=== PATIENT | female | born 1975 ===

== ENCOUNTER 2020-09-15 08:07 | Outpatient (REF) | payer OTHER, SELFPAY ==
--- NOTE | ~2020-09-15 | MM_ITS ---
EXAMINATION: MM SCREENING DIGITAL BREAST TOMOSYNTHESIS, BILATERAL CLINICAL INFORMATION: Screening. Asymptomatic. Personal history left ADH 2016 status post excision 05/24/2016. The lifetime risk of breast cancer based on the Tyrer-Cuzick Model is 35%. COMPARISON: Mammography: 03/14/2019, 01/16/2018, 12/28/2016, 05/24/2016, 05/03/2016, 04/11/2016, 03/26/2015 TECHNIQUE: Digital breast tomosynthesis is performed in both the craniocaudal and mediolateral oblique views along with computer-aided detection (CAD). Synthesized 2D images are generated from the tomosynthesis. FINDINGS: There are scattered areas of fibroglandular density (ACR BI-RADS breast composition Category b). The right breast is unremarkable. There is no interval mass or architectural abnormality. Oval asymmetry posterior central breast on CC view is stable from prior studies. Neither breast shows abnormal calcifications. The bilateral axilla are stable. The skin contours are smooth. Left MLO tomography suggests nodular asymmetric density 0.7 x 0.6 cm mid upper quadrant 6 cm from nipple. There is questionable correlate on CC projection just lateral to midline mid depth. This could represent a cyst. Patient will be recalled to further characterize. MM/MM tomosynthesis screening BI IMPRESSION: 1. Left: Nodular asymmetric density mid upper left breast on tomography under 1 cm. 2. Right: No mammographic evidence of malignancy. ASSESSMENT: BI-RADS 0: Incomplete - Need Additional Imaging Evaluation RECOMMENDATION: 1. Additional views of the left breast (3-D spot MLO, 3-D spot CC). 2. Targeted ultrasound if warranted after review of the additional views. 3. Radiology department staff will contact the patient for additional imaging. 4. The lifetime risk of breast cancer based on the Tyrer-Cuzick Model is 35%. Additional annual adjunct screening with breast MRI may be of benefit in women with a risk score of 20% or greater. This patient's information was entered into a reminder system with a target due date for their next mammogram.
== END 2020-09-15 08:08 | disposition home or self-care (01) ==
LOC: HO.MAMMO 08:07
PROVIDERS: Visit Provider Internal Medicine
DX: Z12.31 Encounter for screening mammogram for malignant neoplasm of breast (principal)
CPT/HCPCS: 77063; 77067

== ENCOUNTER 2020-09-22 08:41 | Outpatient (REF) | payer OTHER, SELFPAY ==
--- NOTE | ~2020-09-22 | MM_ITS ---
EXAMINATION: MM DIAGNOSTIC DIGITAL BREAST TOMOSYNTHESIS, LEFT US DIAGNOSTIC ULTRASOUND BREAST, LEFT CLINICAL INFORMATION: Recall from screening for nodular asymmetric density mid upper left breast under 1 cm. Prior history left stereotactic biopsy 05/03/2016 (ADH). Excisional biopsy 05/24/2016 (no residual ADH identified). TC score 35%. COMPARISON: Mammography: 09/15/2020, 03/14/2019, 01/16/2018 TECHNIQUE: Digital breast tomosynthesis is performed. 2D images are generated from the tomosynthesis. The following views are obtained: Spot CC, spot MLO, spot ML. Ultrasound left breast is targeted to the upper breast 10:00 through 2:00 position. Grayscale imaging and color Doppler are performed without and with harmonics. FINDINGS: There are scattered areas of fibroglandular density (ACR BI-RADS breast composition Category b). The asymmetric density is not clearly seen with certainty on the additional views. There is no architectural abnormality. Ultrasound demonstrates a probable complicated cyst 12:00 position 6 cm from nipple measuring under 5 mm. There is an avascular uniform thin internal septation. No increased or decreased through transmission of sound possibly due to the small size. This may correspond to the finding at screening. Results are discussed with the patient at time of visit. Given the past history ADH, short interval follow-up left mammography and targeted breast ultrasound will be requested in 6 months. MM/MM tomosynthesis added views L IMPRESSION: 1. No persistent asymmetric density seen with certainty on additional views. 2. Small complicated cyst 12:00 position mid depth on ultrasound. This may correspond to finding at recent screening. ASSESSMENT: BI-RADS 3: Probably Benign RECOMMENDATION: Diagnostic mammography and targeted left breast ultrasound in 6 months. This patient's information was entered into a reminder system with a target due date for their next mammogram.
== END 2020-09-22 08:42 | disposition home or self-care (01) ==
LOC: HO.MAMMO 08:41
PROVIDERS: Visit Provider Internal Medicine
DX: R92.2 Inconclusive mammogram (principal)
CPT/HCPCS: 76642; 77061; 77065

== ENCOUNTER 2021-04-08 08:25 | Outpatient (REF) | payer OTHER, SELFPAY ==
--- NOTE | ~2021-04-08 | MM_ITS ---
EXAMINATION: MM DIAGNOSTIC DIGITAL BREAST TOMOSYNTHESIS, LEFT US DIAGNOSTIC ULTRASOUND BREAST, LEFT CLINICAL INFORMATION: Short interval follow-up recent asymmetric density with benign-appearing complicated cyst as probable correlative finding. Prior history left breast ADH status post excision 05/24/2016 (no residual ADH identified). TC score 35%. COMPARISON: Mammography: 09/22/2020, 09/15/2020 (BI-RADS 0) 03/14/2019. TECHNIQUE: Digital breast tomosynthesis is performed in both the craniocaudal and mediolateral oblique views along with computer-aided detection (CAD). Synthesized 2D images are generated from the tomosynthesis. Additional exaggerated left CC view is provided. Ultrasound left breast is targeted to the 10:00 through 2:00 position. Grayscale imaging and color Doppler are performed without and with harmonics. FINDINGS: There are scattered areas of fibroglandular density (ACR BI-RADS breast composition Category b). Parenchymal pattern is similar to prior studies. There is no developing density or interval suspicious changes. No abnormal calcifications. The axilla is stable. Skin contours are smooth. Ultrasound left breast shows stable benign mildly complicated cyst 12:00 position 6 cm from nipple measuring around 5 mm. No solid component or associated color flow. Finding is considered to be benign. Results are provided to the patient at time of visit by the technologist. MM/MM tomosynthesis diagnostic LT IMPRESSION: No significant changes from prior studies. No developing density. ASSESSMENT: BI-RADS 2: Benign RECOMMENDATION: 1. Routine annual mammography screening, due in 6 months. 2. The lifetime risk of breast cancer based on the Tyrer-Cuzick Model is 35%. Additional annual adjunct screening with breast MRI may be of benefit in women with a risk score of 20% or greater. This patient's information was entered into a reminder system with a target due date for their next mammogram.
== END 2021-04-08 08:26 | disposition home or self-care (01) ==
LOC: HO.MAMMO 08:25
PROVIDERS: PCP Internal Medicine; Visit Provider Internal Medicine
DX: R92.2 Inconclusive mammogram (principal)
CPT/HCPCS: 76642; 77061; 77065

== ENCOUNTER 2021-05-07 14:47 | Outpatient (REF) | payer OTHER, SELFPAY ==
[2021-05-07 14:59] LABS: COVID-19 Test Positive (Negative)
== END 2021-05-07 14:48 | disposition home or self-care (01) ==
LOC: HO.LNP 14:47
PROVIDERS: Visit Provider Internal Medicine
DX: Z20.822 Contact with and (suspected) exposure to COVID-19 (principal)
CPT/HCPCS: 87635

== ENCOUNTER 2022-04-25 09:36 | Outpatient (REF) | payer OTHER, SELFPAY ==
--- NOTE | ~2022-04-25 | MM_ITS ---
EXAMINATION: MM SCREENING DIGITAL BREAST TOMOSYNTHESIS, BILATERAL CLINICAL INFORMATION: Screening. Asymptomatic. The lifetime risk of breast cancer based on the Tyrer-Cuzick Model is 34.4%. Additional annual screening with breast MRI may be of benefit in women with a score of 20% or greater. COMPARISON: Mammography: April 08, 2021 and studies dating back to February 23, 2015 TECHNIQUE: Digital breast tomosynthesis is performed in both the craniocaudal and mediolateral oblique views along with computer-aided detection (CAD). Synthesized 2D images are generated from the tomosynthesis. FINDINGS: The breasts are heterogeneously dense, which may obscure small masses (ACR BI-RADS breast composition Category c). There are no new significant masses, abnormal calcifications, or other abnormalities. Postsurgical change about aspect of the left breast again seen. Stable left breast density superiorly noted. MM/MM tomosynthesis screening BI IMPRESSION: No significant changes from prior exam. ASSESSMENT: BI-RADS 2: Benign RECOMMENDATION: Routine annual mammography screening. This patient's information was entered into a reminder system with a target due date for their next mammogram.
== END 2022-04-25 09:37 | disposition home or self-care (01) ==
LOC: HO.MAMMO 09:36
PROVIDERS: PCP Internal Medicine; Visit Provider Internal Medicine
DX: Z12.31 Encounter for screening mammogram for malignant neoplasm of breast (principal)
CPT/HCPCS: 77063; 77067

== ENCOUNTER 2023-06-16 08:30 | Outpatient (REF) | payer OTHER, SELFPAY | END 2023-06-16 08:31 | disposition home or self-care (01) | LOC: HO.MAMMO 08:30 | PROVIDERS: PCP Internal Medicine; Visit Provider Internal Medicine | DX: Z12.31 Encounter for screening mammogram for malignant neoplasm of breast (principal) | CPT/HCPCS: 77063; 77067 ==

== ENCOUNTER → 2023-06-16 08:45 | Outpatient (BNV) | payer OTHER, SELFPAY | PROVIDERS: PCP Internal Medicine; Visit Provider Radiology Diagnostic Radiology | DX: Z12.31 Encounter for screening mammogram for malignant neoplasm of breast (principal) | CPT/HCPCS: 77063; 77067 ==

== ENCOUNTER 2023-09-20 11:19 | Outpatient (AMB) | payer OTHER, SELFPAY ==
--- NOTE | 2023-09-20 11:20 | A.OFFVIS_ITS ---
Vital Signs 09/20/23 11:26 Height 5 ft 3 in Weight 115 lb BMI 20.4 BP 157/84 H Blood Pressure Location Rt brachial Position Sitting Pulse 74 Intake Visit Reasons: Pilar cyst Intake Note: This patient present for an assessment for several pilar cyst. Patient c/o; reports saw in 2018 and had several pilar cyst removed, reports tenderness. Records Management Assistant Required: No Accompanied by: Self / Same As Patient Allergies cat dander Allergy (Severe, Verified 09/20/23 11:28) Unknown dog dander Allergy (Severe, Verified 09/20/23 11:28) Unknown ethinyl estradiol [Tri-Sprintec (28)] Allergy (Unknown, Verified 09/20/23 11:28) Unknown norgestimate [Tri-Sprintec (28)] Allergy (Unknown, Verified 09/20/23 11:28) Unknown Medication List - Last Reconciled 09/20/23 by Juvencio Marrero MD No Known Home Meds HPI HPI Pilar cyst: Details: [age] year old female referred for scalp cyst. She has had multiple scalp cysts over the years. She says some of these have been removed under local anesthesia in the past by Dr. Urñea She has 2 large scalp cysts the parietal area that she wants removed this time. She does state that she has other smaller cysts as well. COUNTS INCLUDE 234 BEDS AT THE [facility] Medical History (Updated 09/20/23 @ 11:35 by Juvencio Marrero MD) Scalp cyst Surgical History History of lumpectomy of left breast (~05/24/16) H/O removal of cyst (~10/17/13) H/O removal of cyst Family History Father Thyroid cancer Mother No problems noted. Paternal Grandfather Lung cancer Social History Alcohol intake: current Alcohol intake frequency: a few times a month Patient Tobacco Use Status: Never used Tobacco Review of Systems Const Denies chills and Denies fever(s) Card Denies chest pain, Denies dyspnea and Denies dyspnea on exertion Resp Denies cough, Denies dyspnea and Denies dyspnea on exertion GI Denies hematochezia and Denies change in bowel habits Denies hematuria Musc Denies back pain and Denies limited range of motion Neuro Denies focal weakness and Denies convulsions Psych Denies depression and Denies mood swings Physical Exam Vital Signs: Last Vital Signs Pulse 74 09/20/23 11:26 BP 157/84 H 09/20/23 11:26 BMI result Body Mass Index 20.4 Const General: comfortable and no acute distress Orientation/consciousness: patient oriented x3 HEENT Other: Scalp cysts x2 on the parietal area, 1 about a cm in diameter, another 1 about 2 cm in diameter, both well-defined, not inflamed Neck Neck: Yes no lymphadenopathy Resp Auscultation: clear to auscultation bilaterally Cardio Rhythm: regular rhythm GI Palpation (GI): Soft to palpation, nontender and no guarding Neuro General: patient oriented x3 Assessment & Plan Assessment & Plan (1) Scalp cyst: Code(s): L72.9 - Follicular cyst of the skin and subcutaneous tissue, unspecified Category: Medical Plan: She has 2 scalp cysts as described above that she wants removed. I explained the technique of excision under local anesthesia. I explained the risks including but not limited to bleeding, infection postop pain, as well as the benefits and alternatives She says she understands and wants to proceed We will schedule her for excision of these 2 scalp cysts under local anesthesia here in the office on her next visit. Coding Level of Care Code New Pt Level 3 (48627) Diagnoses Scalp cyst L72.9
[2023-09-20 11:26] VITALS: BP 157/84; PULSE 74; BMI 20.4
== END 2023-09-20 11:38 | disposition home or self-care (01) ==
PROVIDERS: PCP Internal Medicine; Visit Provider Surgery
DX: L72.9 Follicular cyst of the skin and subcutaneous tissue, unspecified (principal)
CPT/HCPCS: 99203

== ENCOUNTER → 2023-09-20 11:19 | Outpatient (BNVA) | payer OTHER, SELFPAY | PROVIDERS: PCP Internal Medicine; Visit Provider Surgery ==

== ENCOUNTER 2023-10-10 12:49 | Outpatient (AMB) | payer OTHER, SELFPAY ==
--- NOTE | 2023-10-10 12:53 | MHC.OFFVIS ---
Intake Visit Reasons: Excision scalp cysts x 2 Intake Note: Office procedure: Excision scalp cysts x 2 Custom Furrier Required: No Accompanied by: Self / Same As Patient Allergies cat dander Allergy (Severe, Verified 10/10/23 12:53) Unknown dog dander Allergy (Severe, Verified 10/10/23 12:53) Unknown ethinyl estradiol [Tri-Sprintec (28)] Allergy (Unknown, Verified 10/10/23 12:53) Unknown norgestimate [Tri-Sprintec (28)] Allergy (Unknown, Verified 10/10/23 12:53) Unknown HPI HPI Excision scalp cysts x 2: Details: She is here for removal of scalp cysts. [facility] Medical History Scalp cyst Surgical History H/O removal of cyst (~10/10/23) History of lumpectomy of left breast (~05/24/16) H/O removal of cyst (~10/17/13) H/O removal of cyst Family History Father Thyroid cancer Mother No problems noted. Paternal Grandfather Lung cancer Social History Alcohol intake: current Alcohol intake frequency: a few times a month Patient Tobacco Use Status: Never used Tobacco Office Procedures Excision Details: She had 2 cysts on the parietal area but there were actually 2 cyst in 1 of the areas so all in all, 3 cysts were removed.. These areas were prepped and draped. Lidocaine 1% was used for local anesthesia. I made an incision on the skin overlying the 1st cyst on the posterior parietal area using blade 15. This was carried down through the full-thickness of the skin until the cyst capsule was visualized. I sharply dissected the cyst capsule until I was able to circumferentially free this up and this was sent as a specimen. There were actually 2 cysts, each about 8 mm in size and I had to remove both in the same fashion. I closed the incision with full-thickness nylon 3-0 interrupted sutures. The 2nd cyst was also infiltrated with lidocaine 1%. I made an incision with a blade 15. I carried the incision through the full-thickness of the skin and subcutaneous fat until I was able to visualize the cyst capsule. This was sharply dissected with scissors until this was delivered and sent as a specimen. This was about 1 cm in diameter. I also closed this incision with full-thickness nylon 3-0 interrupted nylon sutures. Bacitracin dressings were applied. The procedure was completed. Aggregate size of the 3 cyst was about a 2.6 cm in diameter. She tolerated the procedure well. There were no immediate complications. There was minimal blood loss. [id number] scalp/neck/hands/feet/genitalia 2.1cm-3cm Procedure code (CPT) selection complete Assessment & Plan Assessment & Plan (1) Scalp cyst: Code(s): L72.9 - Follicular cyst of the skin and subcutaneous tissue, unspecified Category: Medical Plan: Three scalp cysts were removed under local anesthesia. She tolerated procedure well. She was given wound care instructions. I will see her in the office in about 2 weeks to remove her sutures. Coding Level of Care Code Procedure Only Diagnoses Scalp cyst L72.9 CPT Codes Scalp/Neck/Hands/Feet/Genetalia - CPT: 68573-[id number] scalp/neck/hands/feet/genitalia 2.1cm-3cm ([id number])
== END 2023-10-10 13:36 | disposition home or self-care (01) ==
PROVIDERS: PCP Internal Medicine; Visit Provider Surgery
DX: L72.11 Pilar cyst (principal)
CPT/HCPCS: 11421; 11422

== ENCOUNTER 2023-10-10 12:49 | Outpatient (REF) | payer OTHER, SELFPAY | END 2023-10-10 12:50 | disposition home or self-care (01) | LOC: HO.LNP 12:49 | PROVIDERS: PCP Internal Medicine; Visit Provider Surgery | DX: L72.11 Pilar cyst (principal) | CPT/HCPCS: 11421; 11422; 88304 ==

== ENCOUNTER 2023-10-24 09:46 | Outpatient (AMB) | payer OTHER, SELFPAY ==
--- NOTE | 2023-10-24 09:48 | A.OFFVIS_ITS ---
Intake Visit Reasons: S/p Exc scalp cysts x 2 Intake Note: This patient presents for a follow-up assessment status post excision x3 scalp cysts. Patient c/o; reports no complaints. Car Body Mechanic Required: No Accompanied by: Other Relationship Allergies cat dander Allergy (Severe, Verified 10/24/23 09:52) Unknown dog dander Allergy (Severe, Verified 10/24/23 09:52) Unknown ethinyl estradiol [Tri-Sprintec (28)] Allergy (Unknown, Verified 10/24/23 09:52) Unknown norgestimate [Tri-Sprintec (28)] Allergy (Unknown, Verified 10/24/23 09:52) Unknown Medication List - Last Reconciled 10/24/23 by Juvencio Marrero MD No Known Home Meds HPI HPI S/p Exc scalp cysts x 2: Details: She underwent excision of 2 scalp cysts in the office under local anesthesia 2 weeks ago. She denies any complaints. She feels well today. [facility] Medical History Scalp cyst Surgical History History of removal of cyst (~10/10/23) H/O removal of cyst (~10/10/23) History of lumpectomy of left breast (~05/24/16) H/O removal of cyst (~10/17/13) H/O removal of cyst Family History Father Thyroid cancer Mother No problems noted. Paternal Grandfather Lung cancer Social History Alcohol intake: current Alcohol intake frequency: a few times a month Patient Tobacco Use Status: Never used Tobacco Review of Systems Const Denies chills and Denies fever(s) Card Denies chest pain, Denies dyspnea and Denies dyspnea on exertion Resp Denies cough, Denies dyspnea and Denies dyspnea on exertion GI Denies hematochezia and Denies change in bowel habits Denies hematuria Musc Denies back pain and Denies limited range of motion Neuro Denies focal weakness and Denies convulsions Psych Denies depression and Denies mood swings Physical Exam Const General: comfortable and no acute distress HEENT Other: Both excision sites are well healed, not infected, sutures intact Assessment & Plan Assessment & Plan (1) Scalp cyst: Code(s): L72.9 - Follicular cyst of the skin and subcutaneous tissue, unspecified Category: Medical Plan: Status post excision of scalp cysts x2. Both sites are well healed. I removed her sutures. Her path report shows Pilar cysts. She can follow up on a p.r.n. basis. Coding Level of Care Code Global (01696) Diagnoses Scalp cyst L72.9
== END 2023-10-24 10:08 | disposition home or self-care (01) ==
PROVIDERS: PCP Internal Medicine; Visit Provider Surgery
DX: L72.9 Follicular cyst of the skin and subcutaneous tissue, unspecified (principal)
CPT/HCPCS: 99024

== ENCOUNTER → 2023-10-24 09:46 | Outpatient (BNVA) | payer OTHER, SELFPAY | PROVIDERS: PCP Internal Medicine; Visit Provider Surgery ==

== ENCOUNTER 2024-06-26 07:38 | Outpatient (REF) | payer OTHER, SELFPAY | END 2024-06-26 07:39 | disposition home or self-care (01) | LOC: HO.MAMMO 07:38 | PROVIDERS: PCP Internal Medicine; Visit Provider Internal Medicine | DX: Z12.31 Encounter for screening mammogram for malignant neoplasm of breast (principal) | CPT/HCPCS: 77063; 77067 ==

== ENCOUNTER → 2024-06-26 07:45 | Outpatient (BNV) | payer OTHER, SELFPAY | PROVIDERS: PCP Internal Medicine; Visit Provider Internal Medicine | DX: Z12.31 Encounter for screening mammogram for malignant neoplasm of breast (principal) | CPT/HCPCS: 77063; 77067 ==